=== PATIENT | female | born 1955 | race Two or more races ===

== ENCOUNTER 2021-02-05 08:23 | Outpatient (CLI) | payer MEDICARE | END 2021-02-05 23:59 | disposition home or self-care (01) | LOC: CARD 08:23 | PROVIDERS: ATTEND Nurse Practitioner Family | DX: G56.01 Carpal tunnel syndrome, right upper limb (principal); G56.02 Carpal tunnel syndrome, left upper limb; G62.9 Polyneuropathy, unspecified; R20.2 Paresthesia of skin | CPT/HCPCS: 95886; 95908 ==